=== PATIENT | female | born 1940 | race Two or more races ===

== ENCOUNTER 2017-10-05 21:14 | Emergency (ER) | payer MEDICARE ==
[2017-10-05 22:55] VITALS: RESP 16
--- NOTE | 2017-10-05 23:11 | CT ---
EXAMINATION TYPE: CT brain caro valdes DATE OF EXAM: 10/05/2017 COMPARISON: NONE HISTORY: Pt. fell from standing and hit her head CT DLP: 1322.60 mGycm Automated exposure control for dose reduction was used. TECHNIQUE: CT scan of the head and cervical spine are performed without contrast. FINDINGS: There is cerebral cortical atrophy. There is no mass effect nor midline shift. There is n o sign of intracranial hemorrhage. The calvarium is intact. The cervical vertebra have normal alignment. Disc spaces are fairly well-maintained for the patient's age. There are mild spondylotic changes at C4-5 and C5-6. Facet joints appear intact. The skull base is intact. The posterior elements are intact. IMPRESSION: Cerebral atrophy. No acute intracranial abnormality. Mild spondylotic changes in the cervical spine. No fracture.
--- NOTE | 2017-10-05 23:25 | ED ---
General Adult HPI - General Chief complaint: Fall Stated complaint: Fall Time Seen by Provider: 10/05/17 22:25 Source: patient, family, RN notes reviewed Mode of arrival: wheelchair Limitations: no limitations - History of Present Illness Initial comments: Chief complaint history of present illness this is a 77-year-old female here with her . Patient reports that while he was asleep on the sofa she was trying to sit down a chair but a cat was there. She does have Parkinson's and poor balance. she states when she stood up she fell backwards bumping her head. States there was blood. No apparent loss of consciousness. No nausea no vomiting no seizure activity. - Related Data Home Medications Medication Instructions Recorded Confirmed Acebutolol HCl [Sectral] 200 mg PO DAILY 10/05/17 10/05/17 Cholecalciferol [Vitamin D3] 1,000 unit PO DAILY 10/05/17 10/05/17 Vitamin A 8,000 unit PO DAILY 10/05/17 10/05/17 cloNIDine HCL [Catapres] 0.2 mg PO DAILY 10/05/17 10/05/17 Allergies Allergy/AdvReac Type Severity Reaction Status Date / Time No Known Allergies Allergy Verified 10/05/17 21:23 Review of Systems ROS Statement: Those systems with pertinent positive or pertinent negative responses have been documented in the HPI. review of systems. Patient states she had some bleeding from her scalp but denies headache or neck pain at this time. No chest pain shortness breath GI/ problems no neuro deficits. Patient's states that she does not appear to sound or behave in any abnormal manner. The patient does have Parkinson's. Past medical problems significant for hypertension Parkinson's. Surgeries hysterectomy. Family history noncontributory. Nonsmoker. Patient uses alcohol daily. ROS Other: All systems not noted in ROS Statement are negative. Past Medical History Past Medical History: Hypertension Additional Past Medical History / Comment(s): PARKINSONS, History of Any Multi-Drug Resistant Organisms: None Reported Past Surgical History: Hysterectomy Past Psychological History: No Psychological Hx Reported Smoking Status: Never smoker Past Alcohol Use History: Daily Past Drug Use History: None Reported General Exam - General Exam Comments Initial Comments: General: The patient is awake and alert, in no distress, and does not appear acutely ill. presented by private car. [place] collar applied upon arrival to emergency room. No signs shows temperature 97.3 pulse 95 respiratory rate 18 pulse ox 96% room air blood pressure 197/83 Eye: Pupils are equal, round and reactive to light, extra-ocular movements are intact ; there is normal conjunctiva bilaterally. No signs of icterus. patient wear sunglasses and has difficulty opening her eyes from previous neurological problems. Ears, nose, mouth and throat: There are moist mucous membranes and no oral lesions. Neck: The neck is supple, there is no tenderness , examined after removal of [place] collar. Cardiovascular: There is a regular rate and rhythm. No murmur, rub or gallop is appreciated. Respiratory: Lungs are clear to auscultation, respirations are non-labored, breath sounds are equal. No wheezes, stridor, rales, or rhonchi. Gastrointestinal: Soft, non-distended, non-tender abdomen without masses or organomegaly noted. There is no rebound or guarding present. No CVA tenderness. Bowel sounds are unremarkable. Back: There is no tenderness to palpation in the midline. There is no obvious deformity. No rashes noted. Musculoskeletal: Normal ROM, no tenderness, There is no pedal edema. There is no calf tenderness or swelling. Sensation intact. Pulses equal bilaterally 2+. Neurological: neurologically grossly intact. Some limited motions secondary to advanced Parkinson's. Skin: Skin is warm and dry and no rashes or lesions are noted. Limitations: no limitations Course Vital Signs 10/05/17 10/05/17 21:16 22:54 Temperature 97.3 F L Pulse Rate 95 81 Respiratory 18 16 Rate Blood Pressure 197/83 185/87 O2 Sat by Pulse 96 99 Oximetry Procedures - Procedures Initial comment: procedure; 1% Xylocaine was used and sterile technique used to clean and staple a 2-1/2 cm laceration just posterior to the patient's left ear. The patient also has a small laceration on the ear this too was cleaned with 1 staple closure. Total number stables placed on the scalp was 8. Bandage applied. Dr. Gould Medical Decision Making - Medical Decision Making medical decision making;; Patient had a CAT scan of the brain and cervical spine. Entire report was reviewed. The radiologist's findings are there is cerebral cortical atrophy. There is no mass effect or midline shift. There is no sign of intracranial hemorrhage. The calvarium is intact. The cervical vertebra have normal alignment. Disc spaces are fairly well-maintained for the patient's age. There are mild spondylotic changes at C4-C5 and C5-C6. Facet joints appear intact. The skull base intact. The posterior elements are intact. Impression; cerebral atrophy. No acute intracranial abnormality. Mild spondylotic changes in the cervical spine. No fracture. As read by Dr. Simon. patient be discharged home to the care of her . She is to return in 10 days for elisa removed from her scalp. She can wash her hair tomorrow in the shower. Follow-up family physician return emergency room if there are difficulties or problems. Tylenol or ibuprofen for pain. Disposition Clinical Impression: Fall, Occipital scalp laceration Disposition: HOME SELF-CARE Condition: Stable Instructions: Fall Prevention for Older Adults (ED), Scalp Contusion in Adults (ED), Laceration (ED), Staple Care (ED) Additional Instructions: Watch for any changes. Return emergency room as needed.return emergency room her elisa removed in 10 days or earlier should be signs of infection or problems. Referrals: Armen Valdez MD [Primary Care Provider] - 1-2 days Time of Disposition: 23:57
[2017-10-06 00:31] VITALS: BP 163/73; PULSE 76; TEMP 98
== END 2017-10-06 00:22 | disposition home or self-care (01) ==
LOC: SUPCPDRO 21:14 → EC 21:14
DX: S01.01XA Laceration without foreign body of scalp, initial encounter (principal); S01.312A Laceration without foreign body of left ear, initial encounter; G31.9 Degenerative disease of nervous system, unspecified; I10 Essential (primary) hypertension; Z79.899 Other long term (current) drug therapy; W01.198A Fall on same level from slipping, tripping and stumbling with subsequent striking against other object, initial encounter; Y93.89 Activity, other specified
CPT/HCPCS: 12001; 12011; 70450; 72125; 99283

== ENCOUNTER 2018-12-23 18:46 | Emergency (ER) | payer MEDICARE ==
--- NOTE | 2018-12-23 19:03 | ED ---
General Adult HPI - General Stated complaint: Fall, head injur/laceration Time Seen by Provider: 12/23/18 18:54 Source: patient, RN notes reviewed, old records reviewed Mode of arrival: wheelchair Limitations: physical limitation - History of Present Illness Initial comments: 78-year-old female patient with past medical history of hypertension, Parkinson' s presents to ED after sustaining a mechanical fall. Physical reports that patient has a shuffling gait and is unsteady on her feet. Patient reports that she fell backwards hitting occipital lobe and a marble table. Patient did not have any loss of consciousness. Patient denies any blood thinners. Patient not complaining of any neck pain. Patient primary complaint is occipital lobe laceration. Patient denies other complaints. Systemic: Pt denies fatigue, myalgia, fever/chills, rash. Pt denies weakness, night sweats, weight loss. Neuro: Pt denies headache, visual disturbances, syncope or pre-syncope. HEENT: Pt denies ocular discharge or irritation, otalgia, rhinorrhea, pharyngitis or notable lymphadenopathy. Cardiopulmonary: Pt denies chest pain, SOB, heart palpitations, dyspnea on exertion. Abdominal/GI: Pt denies abdominal pain, n/v/d. : Pt denies dysuria, burning w/ urination, frequency/urgency. Denies new onset urinary or bowel incontinence. MSK: Pt denies myalgia, loss of strength or function in extremities. Neuro: Pt denies new onset weakness, paresthesias. - Related Data Home Medications Medication Instructions Recorded Confirmed Acebutolol HCl [Sectral] 200 mg PO DAILY 10/05/17 12/23/18 cloNIDine HCL [Catapres] 0.2 mg PO DAILY 10/05/17 12/23/18 Allergies Allergy/AdvReac Type Severity Reaction Status Date / Time No Known Allergies Allergy Verified 12/23/18 20:18 Review of Systems ROS Statement: Those systems with pertinent positive or pertinent negative responses have been documented in the HPI. ROS Other: All systems not noted in ROS Statement are negative. Past Medical History Past Medical History: Hypertension Additional Past Medical History / Comment(s): PARKINSONS, History of Any Multi-Drug Resistant Organisms: None Reported Past Surgical History: Hysterectomy Past Psychological History: No Psychological Hx Reported Smoking Status: Never smoker Past Alcohol Use History: Daily Past Drug Use History: None Reported General Exam - General Exam Comments Initial Comments: Constitutional: NAD, AOX3, Pt has pleasant affect. HEENT: NC/AT, trachea midline, neck supple, no lymphadenopathy. Posterior pharynx non erythematous, without exudates. External ears appear normal, without discharge. Mucous membranes moist. Eyes PERRLA, EOM intact. There is no scleral icterus. No pallor noted. Cardiopulmonary: RRR, no murmurs, rubs or gallops, no JVD noted. Lungs CTAB in anterior and posterior rolle. No peripheral edema. Abdominal exam: Abdomen soft and non-distended. Abdomen non-tender to palpation in all 4 quadrants. Bowel sounds active in LLQ. No hepatosplenomegaly. No ecchymosis Neuro: CN II-XII intact. No nuchal rigidity. No focal deficit of facial droop. Repeat neuro exam within normal limits. MSK: 2cm laceration noted on occipital lobe. Wound was irrigated vigorously with 1 L normal saline. Closed with 5 elisa. No posterior calf tenderness bilaterally, homans sign negative bilaterally. Posterior tibialis and radial pulse +2 bilaterally. Sensation intact in upper and lower extremities. Full active ROM in upper and lower extremities, 5/5 stregnth. Limitations: physical limitation Course Vital Signs 12/23/18 12/23/18 12/23/18 19:00 20:01 21:01 Temperature 96.9 F L Pulse Rate 84 72 88 Respiratory 18 20 20 Rate Blood Pressure 112/76 115/69 129/69 O2 Sat by Pulse 96 99 99 Oximetry 12/23/18 12/23/18 12/23/18 22:00 22:30 22:58 Temperature Pulse Rate 76 82 78 Respiratory 18 20 18 Rate Blood Pressure 126/56 114/59 99/51 O2 Sat by Pulse 99 98 98 Oximetry 12/23/18 23:30 Temperature Pulse Rate 72 Respiratory 14 Rate Blood Pressure 125/45 O2 Sat by Pulse 100 Oximetry Procedures - Laceration Laceration #1 Consent Obtained: verbal consent Indication: laceration Site: scalp Size (cm): 2 Description: linear Depth: simple, single layer Anesthetic Used: lidocaine 1% Anesthesia Technique: local infiltration Amount (mls): 4 Pre-repair: wound explored, irrigated extensively, deep structures intact Type of Sutures: nylon Size of Sutures: other (elisa) Number of Sutures: 5 Patient Tolerated Procedure: well, no complications Medical Decision Making - Medical Decision Making 78-year-old female patient with past medical history of hypertension, Parkinson' s presents to ED after sustaining a mechanical fall. Physical reports that patient has a shuffling gait and is unsteady on her feet. Patient reports that she fell backwards hitting occipital lobe and a marble table. Patient did not have any loss of consciousness. Patient denies any blood thinners. Patient not complaining of any neck pain. Patient primary complaint is occipital lobe laceration. Patient denies other complaints. Pt VSS, afebrile. Physical exam displayed: CN II-XII intact. No nuchal rigidity. No focal deficit of facial droop. Repeat neuro exam within normal limits.2cm laceration noted on occipital lobe. Wound was irrigated vigorously with 1 L normal saline. Closed with 5 elisa. Pt tetanus updated within last 5 years. Pt to f/u with PCP in 1 -2 days for continued evaluation. Pt to return to ED if new s/sx develop or if condition worsens in anyway. Case discussed in depth and pt seen by Dr. White. - Lab Data Result diagrams: 12/23/18 22:22 Lab Results 12/23/18 Range/Units 22:22 WBC 17.8 H (3.8-10.6) k/uL RBC 3.82 (3.80-5.40) m/uL Hgb 11.6 (11.4-16.0) gm/dL Hct 35.3 (34.0-46.0) % MCV 92.2 (80.0-100.0) fL MCH 30.3 (25.0-35.0) pg MCHC 32.8 (31.0-37.0) g/dL RDW 13.1 (11.5-15.5) % Plt Count 258 (150-450) k/uL Neutrophils % 84 % Lymphocytes % 10 % Monocytes % 4 % Eosinophils % 1 % Basophils % 0 % Neutrophils # 15.0 H (1.3-7.7) k/uL Lymphocytes # 1.9 (1.0-4.8) k/uL Monocytes # 0.7 (0-1.0) k/uL Eosinophils # 0.2 (0-0.7) k/uL Basophils # 0.0 (0-0.2) k/uL Disposition Clinical Impression: Laceration Disposition: HOME SELF-CARE Condition: Stable Instructions (If sedation given, give patient instructions): Laceration (ED) Additional Instructions: Patient to adhere to previously discussed treatment plan and will take medication(s) as directed. Patient to follow up with PCP in 1-2 days. Patient to return to ED if symptoms do not improve. Please return for suture removal: Hand: 7-10 days Face: 5 days Chest/abdomen: 12-14 days Extremities: 7-10 days Scalp: 7 days Eyebrow: 5-7 days Foot/sole: 12-14 days Please monitor for signs and symptoms of infection including: redness, warmth, drainage, discharge. Please return to ED if these signs or symptoms occur, new signs or symptoms develop or if condition worsens in anyway. Is patient prescribed a controlled substance at d/c from ED?: No Referrals: Armen Valdez MD [Primary Care Provider] - 1-2 days Time of Disposition: 22:37
--- NOTE | 2018-12-23 19:58 | CT ---
EXAMINATION TYPE: CT brain caro jordan con DATE OF EXAM: 12/23/2018 COMPARISON: 10/05/2017 HISTORY: Fall, head injury and laceration. CT DLP: 1270.3 mGycm Automated exposure control for dose reduction was used. TECHNIQUE: CT scan of the head and cervical spine are performed without contrast. FINDINGS: There is mild cerebral cortical atrophy. There is no mass effect nor midline shift. There is no sign of intracranial hemorrhage. Calvarium is intact. Vertebra have normal spacing and alignment. Posterior elements are intact. There is degenerative disc space narrowing at C5-6 C6-7. Skull base is intact. I see no bony destructive process. IMPRESSION: Cerebral atrophy. No acute intracranial abnormality. Minor degenerative changes in the cervical spine. No fracture. No significant change compared to old exam.
[2018-12-23 22:33] LABS: Basophils % (A) 0 %; Eosinophils # (A) 0.2 k/uL (0-0.7); Eosinophils % (A) 1 %; HCT 35.3 % (34.0-46.0); HGB 11.6 gm/dL (11.4-16.0); Lymphocytes # (A) 1.9 k/uL (1.0-4.8); Lymphocytes % (A) 10 %; MCH 30.3 pg (25.0-35.0); MCHC 32.8 g/dL (31.0-37.0); MCV 92.2 fL (80.0-100.0); Mean Platelet Volume 7.9; Monocytes # (A) 0.7 k/uL (0-1.0); Monocytes % (A) 4 %; Neutrophils % (A) 84 %; Platelet Count 258 k/uL (150-450); RBC 3.82 m/uL (3.80-5.40); RDW 13.1 % (11.5-15.5); WBC 17.8 k/uL (3.8-10.6)
[2018-12-23] MEDS ORDERED: SODIUM CHLORIDE 0.9% 1,000 ML IV ONE (23:15)
[2018-12-24 01:44] VITALS: BP 119/75; PULSE 75; RESP 15; TEMP 97.8
== END 2018-12-24 01:17 | disposition home or self-care (01) ==
LOC: EC 18:46
DX: S01.01XA Laceration without foreign body of scalp, initial encounter (principal); I10 Essential (primary) hypertension; Z79.899 Other long term (current) drug therapy; W19.XXXA Unspecified fall, initial encounter; W22.03XA Walked into furniture, initial encounter; Y93.89 Activity, other specified
CPT/HCPCS: 12001; 36415; 70450; 72125; 85025; 96360; 96361; 99284

== ENCOUNTER → 2021-04-18 | Outpatient (CLI) | payer MEDICARE ==
--- NOTE | 2021-04-18 16:51 | CT ---
EXAMINATION TYPE: CT brain wo con DATE OF EXAM: 04/18/2021 COMPARISON: 12/23/2018 INDICATION: Weakness with history of parkinsons. DLP: 1314 mGycm, Automated exposure control for dose reduction was used. CONTRAST: None CT of the brain is performed utilizing 3 mm thick sections through the posterior fossa and 3 mm thick sections through the remaining calvarium. Study is performed within 24 hours of arrival to the hosp [facility]. No abnormal hyperdensity is present to suggest an acute intracranial hemorrhage. No mass lesion is evident. No acute infarcts are evident. Ventricles and sulci are mildly prominent for the patient age. Paranasal sinuses and mastoid air cells within the [id number] are clear. IMPRESSIONS: 1. Age-related atrophy
== END | disposition home or self-care (01) ==
LOC: RADCTMAIN 14:28
PROVIDERS: ATTEND Family Medicine
DX: G20 Parkinson's disease (principal)
CPT/HCPCS: 70450